=== PATIENT | male | born 1930 | race Caucasian/White ===

== ENCOUNTER 2017-07-08 17:29 | Emergency (ER) | payer MEDICARE, OTHER ==
--- NOTE | 2017-07-08 18:03 | Emergency Department Record ---
History of Present Illness - General Chief Complaint: Altered Mental Status Stated Complaint: change in behavior Time Seen by Provider: 07/08/17 17:52 Source: Family Mode of Arrival: EMS Limitations: No limitations - History of Present Illness Initial Comments: The patient is here due to becoming aggressive with staff at his [facility] [place] [facility]. He has a hx of dementia and became angry at the staff due to some there calling his station wagon type car a van. Due to that the patient became angry and threatening. He had a similar issue about a month ago and went to [facility] ER and was in the ER for about 20 hours until he was transferred to [facility]. He was at [facility] for 2 weeks and was discharged to [facility] where he has resided for 2 weeks. The patient denies any recent illnesses or injuries. The patient's son also states that the patient is now back to normal. MD Complaint: Confusion Onset/Timin -: Days(s) Severity: Moderate Consistency: Constant Context: Other - Dunlap Coma Scale Eye Response: (4) Open spontaneously Motor Response: (6) Obeys commands Verbal Response: (5) Oriented Dunlap Total: 15 - Related Data Home Medications Medication Instructions Recorded Confirmed Last Taken Apixaban [Eliquis] 2.5 mg PO BID 07/08/17 07/08/17 1 Day Ago ~07/07/17 Cholecalciferol (Vitamin D3) 2,000 unit PO DAILY 07/08/17 07/08/17 1 Day Ago [Vitamin D3] ~07/07/17 Fenofibrate Nanocrystallized 145 mg PO DAILY 07/08/17 07/08/17 1 Day Ago [Fenofibrate] ~07/07/17 Furosemide [Lasix] 20 mg PO DAILY 07/08/17 07/08/17 1 Day Ago ~07/07/17 Glipizide 5 mg PO DAILY 07/08/17 07/08/17 1 Day Ago ~07/07/17 Levothyroxine Sodium 75 mcg PO DAILY 07/08/17 07/08/17 1 Day Ago ~07/07/17 Linagliptin [Tradjenta] 5 mg PO DAILY 07/08/17 07/08/17 1 Day Ago ~07/07/17 Losartan Potassium 25 mg PO DAILY 07/08/17 07/08/17 1 Day Ago ~07/07/17 Metoprolol Succinate [Toprol Xl] 50 mg PO BID 07/08/17 07/08/17 1 Day Ago ~07/07/17 Mirabegron [Myrbetriq] 1 tab PO DAILY 07/08/17 07/08/17 1 Day Ago ~07/07/17 Mirtazapine [Remeron] 15 mg PO QHS 07/08/17 07/08/17 1 Day Ago ~07/07/17 Niacin 500 mg PO QHS 07/08/17 07/08/17 1 Day Ago ~07/07/17 Olanzapine 7.5 mg PO QHS 07/08/17 07/08/17 1 Day Ago ~07/07/17 Pantoprazole Sodium [Protonix] 40 mg PO DAILY 07/08/17 07/08/17 1 Day Ago ~07/07/17 Rivastigmine [Exelon] 1 each TD DAILY 07/08/17 07/08/17 1 Day Ago ~07/07/17 Sennosides/Docusate Sodium 2 each PO BID 07/08/17 07/08/17 1 Day Ago [Senokot-S Tablet] ~07/07/17 Sertraline HCl [Zoloft] 50 mg PO QHS 07/08/17 07/08/17 1 Day Ago ~07/07/17 Tamsulosin HCl [Flomax] 0.4 mg PO DAILY 07/08/17 07/08/17 1 Day Ago ~07/07/17 Verapamil HCl [Verapamil ER] 240 mg PO QAM 07/08/17 07/08/17 1 Day Ago ~07/07/17 Allergies Allergy/AdvReac Type Severity Reaction Status Date / Time ceftriaxone [From Rocephin] Allergy RASH Verified 07/08/17 17:46 Travel Screening - Travel/Exposure Within Last 30 Days Have you traveled within the last 30 days?: No - Travel/Exposure Within Last Year Have you traveled outside the [place] in the last year?: No - Additonal Travel Details Have you been exposed to anyone with a communicable illness?: No - Travel Symptoms Symptom Screening: None Review of Systems Constitutional: Denies: Chills, Fever, Malaise Eyes: Denies: Eye discharge ENT: Denies: Congestion Respiratory: Denies: Cough, Dyspnea Cardiovascular: Denies: Arrhythmia, Chest pain Past Medical History - SOCIAL HISTORY Smoking Status: Former smoker Alcohol Use: None Drug Use: None - RESPIRATORY Hx Respiratory Disorders: No - CARDIOVASCULAR Hx CHF: Yes Hx Hypertension: Yes Hx Irregular Heartbeat: Yes (A-fib) Hx Palpitations: Yes Hx Pacemaker/Defib: Yes Comment:: CAD - NEURO Hx Dementia: Yes - GI Hx Reflux: Yes - Hx UTI: Yes - ENDOCRINE Hx Diabetes: Yes (with PVD) Hx Thyroid Disease: Yes (hypo) - MUSCULOSKELETAL Hx Arthritis: Yes (osteo) - PSYCH Hx Anxiety: Yes Hx Depression: Yes - HEMATOLOGY/ONCOLOGY Hx Cancer: Yes (Squamous cell, melanoma scalp and neck, prostate) Family Medical History Any Significant Family History?: Yes Physical Exam - General General Appearance: Alert, Oriented x3, Cooperative, No acute distress - Head Head exam: Atraumatic, Normocephalic, Normal inspection - Eye Eye exam: Normal appearance, PERRL - ENT Throat exam: Normal inspection. negative: Tonsillar erythema, Tonsillar exudate - Neck Neck exam: Normal inspection, Full ROM. negative: Tenderness - Respiratory Respiratory exam: Normal lung sounds bilaterally. negative: Respiratory distress - Cardiovascular Cardiovascular Exam: Normal heart sounds, Irregular rhythm - GI/Abdominal GI/Abdominal exam: Soft, Normal bowel sounds. negative: Tenderness - Extremities Extremities exam: Normal inspection, Full ROM, Normal capillary refill. negative: Tenderness - Neurological Neurological exam: Alert. negative: Altered, Motor sensory deficit, Oriented X3 (The patient is oriented to name and age only which is normal for him. He is confused to date, day, place and year which also is normal for him.) Course Vital Signs 07/08/17 17:32 Temperature 99.0 F Pulse Rate 83 Respiratory 18 Rate Blood Pressure 128/68 Pulse Ox 95 - Reevaluation(s) Reevaluation #1: The patient is doing very well at this time. He has been very calm and cooperative the entire time in the ED. His evaluation does not demonstrate any acute abnormality which could cause this problem. Due to that fact we will send the patient back to his [facility] [place] [facility]. 07/08/17 19:17 Medical Decision Making - Data Complexity MDM Data: Labs Ordered and/or Reviewed, X-Ray Ordered and/or Reviewed - Lab Data Result diagrams: 07/08/17 18:18 07/08/17 18:18 - Radiology Data Radiology results: Report reviewed (Head CT: No acute changes.) Disposition Disposition: Discharge Clinical Impression: Confusion Disposition: Home, Self-Care Condition: (2) Stable Instructions: Altered Mental Status (ED) Additional Instructions: Please continue your regular medicines. Please see your PCP next week for recheck and have the anemia evaluated. Return to the ER for any worsening issues. Forms: Patient Portal Access Time of Disposition: 19:19 Quality - Quality Measures Quality Measures: N/A - Blood Pressure Screening View Details: Yes Does Patient Have Any of the Following: No, Active Dx of HTN Blood Pressure Classification: Pre-Hypertensive BP Reading Systolic Measurement: 128 Diastolic Measurement: 68 Screening for High Blood Pressure: Patient Exclusion, Hx of HTN [G9744]
[2017-07-08 18:38] LABS: BASO % 0.3 % (0-6); EOS % 2.7 % (0-6); GRAN % 66.2 % (47-80); HEMATOCRIT 35.3 % (42.0-52.0); HEMOGLOBIN 10.4 gm/dl (14.0-18.0); LYMPH % 18.5 % (16-45); MEAN CELL VOLUME 94.6 fl (81-97); MEAN CORPUSCULAR HEMOGLOBIN 27.8 pg (27-33); MEAN CORPUSCULAR HGB CONC 29.5 g/dl (32-36); MEAN PLATELET VOLUME 11.3 fl (7.4-10.4); MONO % 12.3 % (0-9); PLATELET COUNT 306 K/uL (130-400); RED BLOOD COUNT 3.73 M/uL (4.40-5.70); RED CELL DISTRIBUTION WIDTH 16.3 % (11.5-14.5); WHITE BLOOD COUNT W/O DIFF 10.9 K/uL (4.2-12.2)
[2017-07-08 18:39] LABS: INR 1.09; PARTIAL THROMBOPLASTIN TIME 28.7 SECONDS (24.5-39.1); PROTHROMBIN TIME (PATIENT) 11.8 SECONDS (9.5-12.1)
[2017-07-08 18:42] LABS: BILIRUBIN,TOTAL 0.5 mg/dL (0.2-1.0); CREATININE 1.9 mg/dL (0.7-1.2)
[2017-07-08 18:47] LABS: ALB/GLOB RATIO 1.3 (1.1-1.8); ALBUMIN 3.9 g/dL (4.0-5.0)
[2017-07-08 18:54] LABS: URINE APPEARANCE CLEAR; URINE BILIRUBIN NEGATIVE (NEGATIVE); URINE BLOOD NEGATIVE (NEGATIVE); URINE COLOR YELLOW; URINE GLUCOSE (UA) NEGATIVE (NEGATIVE); URINE KETONE NEGATIVE (NEGATIVE); URINE LEUKOCYTE ESTERASE TRACE (NEGATIVE); URINE NITRITE NEGATIVE (NEGATIVE); URINE PROTEIN NEGATIVE (NEGATIVE); URINE UROBILINOGEN 0.2 E.U./dL (0.20 - 1.00)
[2017-07-08 19:05] LABS: URINE BACTERIA NONE SEEN
--- NOTE | 2017-07-10 20:06 | CT SCAN REPORT ---
EXAM: CT SCAN HEAD WO CONTRAST HISTORY: CONFUSION, DEMENTIA, AGGRESSIVE. TECHNIQUE: Axial CT scan of the head performed without IV contrast. Preliminary report provided by [facility]. COMPARISON: None. ENCOUNTER: Initial. FINDINGS: No definite acute intracranial hemorrhage identified. No focal mass effect or midline shift apparent. Moderate generalized atrophy with chronic- appearing deep white matter changes seen, nonspecific but likely representing some chronic small vessel deep white matter ischemic disease. Small chronic lacunar infarcts in the region of the lentiform nucleus of the basal ganglia bilaterally. No definite acute infarct or intracranial mass lesion seen. No depressed calvarial fracture is evident. IMPRESSION: 1. NO DEFINITE ACUTE INTRACRANIAL HEMORRHAGE OR FOCAL MASS EFFECT EVIDENT. 2. GENERALIZED ATROPHY WITH CHRONIC-APPEARING DEEP WHITE MATTER CHANGES AND SMALL CHRONIC LACUNAR INFARCTS IN THE BASAL GANGLIA BILATERALLY WITH THAT ON THE LEFT EXTENDING UP INTO THE ADJACENT DEVI RADIATA OF THE LEFT FRONTOPARIETAL REGION. JOB NUMBER: [id number] MTDD
== END 2017-07-08 19:35 | disposition home or self-care (01) ==
LOC: ER 17:29
DX: R41.0 Disorientation, unspecified (principal); I10 Essential (primary) hypertension; I48.91 Unspecified atrial fibrillation; F03.90 Unspecified dementia, unspecified severity, without behavioral disturbance, psychotic disturbance, mood disturbance, and anxiety; I25.10 Atherosclerotic heart disease of native coronary artery without angina pectoris; F17.210 Nicotine dependence, cigarettes, uncomplicated
CPT/HCPCS: 70450; 80053; 81001; 85025; 85610; 85730; 99283; 99284

== ENCOUNTER 2017-07-21 10:00 | Emergency (ER) | payer MEDICARE, OTHER ==
[2017-07-21] MEDS ORDERED: ONDANSETRON HCL IV 4 MG/2 ML VIAL IV ONE (10:33)
[2017-07-21] MEDS ORDERED: SODIUM CHLORIDE 0.9% 500 ML IV ONE (10:33)
--- NOTE | 2017-07-21 10:39 | Emergency Department Record ---
History of Present Illness - General Chief complaint: Male Urogenital Problem Stated complaint: UTI/VOMITING Time Seen by Provider: 07/21/17 10:24 Source: Patient, Family Mode of Arrival: EMS Limitations: No limitations - History of Present Illness Initial comments: The patient is here by EMS due to a one day hx of nausea, vomiting, and loose stools. There was no reported blood in the stool or vomit. The patient also presently denies any pain or discomfort. He supposedly was diagnosed with a UTI yesterday but has not had the medicines filled. The patient does have dementia and is from [facility]. His son is with him now but cannot provide any hx. The patient does have a hx of prostate CA and has had his Appendix removed. MD Complaint: Other Onset/Timin -: Days(s) Radiation: None Consistency: Constant Improves with: None Worsens with: Other Reports: Nausea/vomiting - Related Data Sexually active: No Home Medications Medication Instructions Recorded Confirmed Last Taken Buspirone HCl [Buspar] 5 mg PO BID PRN 07/21/17 07/21/17 Unknown Buspirone HCl [Buspar] 5 mg PO DAILY 07/21/17 07/21/17 Unknown Cholecalciferol (Vitamin D3) 2,000 unit PO DAILY 07/21/17 07/21/17 Unknown [Vitamin D3] Allergies Allergy/AdvReac Type Severity Reaction Status Date / Time ceftriaxone [From Rocephin] Allergy RASH Verified 07/08/17 17:46 Travel Screening - Travel/Exposure Within Last 30 Days Have you traveled within the last 30 days?: No Review of Systems Constitutional: Denies: Chills, Fever Eyes: Denies: Eye discharge ENT: Denies: Congestion Respiratory: Denies: Cough, Dyspnea Past Medical History - SOCIAL HISTORY Smoking Status: Former smoker Alcohol Use: None Drug Use: None - RESPIRATORY Hx Respiratory Disorders: No - CARDIOVASCULAR Hx Cardio Disorders: Yes Hx Abnormal EKG: Yes Hx CHF: Yes Hx Deep Vein Thrombosis: Yes Hx Hypertension: Yes Hx Irregular Heartbeat: Yes (A-fib) Hx Palpitations: Yes Hx Pacemaker/Defib: Yes Comment:: CAD - NEURO Hx Neuro Disorders: Yes Hx Dementia: Yes - GI Hx GI Disorders: Yes Hx Reflux: Yes - Hx Genitourinary Disorders: Yes Hx UTI: Yes - ENDOCRINE Hx Endocrine Disorders: Yes Hx Diabetes: Yes (with PVD) Hx Thyroid Disease: Yes (hypo) - MUSCULOSKELETAL Hx Musculoskeletal Disorders: Yes Hx Arthritis: Yes (osteo) - PSYCH Hx Psych Problems: Yes Hx Anxiety: Yes Hx Depression: Yes - HEMATOLOGY/ONCOLOGY Hx Hematology/Oncology Disorders: Yes Hx Cancer: Yes (Squamous cell, melanoma scalp and neck, prostate) Hx Chemotherapy: No Hx Radiation Therapy: No Family Medical History Any Significant Family History?: No Physical Exam - General General Appearance: Alert, Cooperative, No acute distress - Head Head exam: Atraumatic, Normocephalic, Normal inspection - Eye Eye exam: Normal appearance, PERRL - Neck Neck exam: Normal inspection, Full ROM. negative: Tenderness - Respiratory Respiratory exam: Normal lung sounds bilaterally. negative: Respiratory distress - Cardiovascular Cardiovascular Exam: Regular rate, Normal rhythm, Normal heart sounds - GI/Abdominal GI/Abdominal exam: Soft, Normal bowel sounds. negative: Tenderness - Extremities Extremities exam: Normal inspection, Full ROM, Normal capillary refill. negative: Tenderness - Neurological Neurological exam: Alert. negative: Motor sensory deficit, Oriented X3 (The patient is oriented to name only which is his normal mental status.) Course Vital Signs 07/21/17 10:11 Temperature 98.7 F Pulse Rate [ 102 H Pulse Ox Probe] Respiratory 18 Rate Blood Pressure 167/69 [Left Arm] Pulse Ox 97 - Reevaluation(s) Reevaluation #1: The patient is doing a lot better at this time. He denies any nausea, vomiting, or AP. It appears he has quite a tight phimosis to the foreskin of his penis so I strongly doubt any UTI and believe the urine obtained at the home is contaminated due to the fact there is no way to get a clean specimen. Our urine here only has a few WBC's and Bact but also Epithelial cells. At this time the patient seems to be doing a lot better and we will give him something to drink. 07/21/17 12:23 Reevaluation #2: The patient is doing very well at this time. He is drinking fluids normally and did stand up to urinate with no difficulty. He denies any pain or discomfort and has no nausea or vomiting or any further diarrhea. 07/21/17 12:46 Medical Decision Making - Lab Data Result diagrams: 07/21/17 10:50 07/21/17 10:50 Disposition Disposition: Discharge Clinical Impression: Vomiting and diarrhea Disposition: Home, Self-Care Condition: (2) Stable Instructions: Gastroenteritis (ED) Additional Instructions: Please continue the patient's regular medicines and ONLY give him the Macrobid. DO NOT give the patient Cipro and Bactrim due to the urine almost FOR SURE being contaminated. Please have the patient see his PCP next week and return to the ER for any problems or recurrent symptoms. Forms: Patient Portal Access Time of Disposition: 13:59 Quality - Quality Measures Quality Measures: N/A - Blood Pressure Screening View Details: Yes Does Patient Have Any of the Following: No, Active Dx of HTN Blood Pressure Classification: Hypertensive Reading Systolic Measurement: 144 Diastolic Measurement: 96 Screening for High Blood Pressure: Patient Exclusion, Hx of HTN [G9744]
[2017-07-21 10:55] LABS: HEMATOCRIT 38.9 % (42.0-52.0); HEMOGLOBIN 11.5 gm/dl (14.0-18.0); MEAN CELL VOLUME 95.1 fl (81-97); MEAN CORPUSCULAR HEMOGLOBIN 28.1 pg (27-33); MEAN CORPUSCULAR HGB CONC 29.6 g/dl (32-36); MEAN PLATELET VOLUME 10.4 fl (7.4-10.4); PLATELET COUNT 261 K/uL (130-400); RED BLOOD COUNT 4.09 M/uL (4.40-5.70); RED CELL DISTRIBUTION WIDTH 15.3 % (11.5-14.5); WHITE BLOOD COUNT W/O DIFF 10.8 K/uL (4.2-12.2)
[2017-07-21 11:03] LABS: PLATELET ESTIMATE NORMAL (NORMAL)
[2017-07-21 11:07] LABS: INR 1.2
[2017-07-21 11:11] LABS: BILIRUBIN,TOTAL 0.7 mg/dL (0.2-1.0); CREATININE 2.1 mg/dL (0.7-1.2); TOTAL PROTEIN 7.5 g/dL (6.6-8.7)
[2017-07-21 11:14] LABS: URINE APPEARANCE CLEAR; URINE BILIRUBIN NEGATIVE (NEGATIVE); URINE BLOOD NEGATIVE (NEGATIVE); URINE COLOR YELLOW; URINE KETONE NEGATIVE (NEGATIVE); URINE LEUKOCYTE ESTERASE TRACE (NEGATIVE); URINE NITRITE NEGATIVE (NEGATIVE); URINE PROTEIN TRACE (NEGATIVE); URINE UROBILINOGEN 0.2 E.U./dL (0.20 - 1.00)
[2017-07-21 11:16] LABS: ALBUMIN 4.2 g/dL (4.0-5.0); BILIRUBIN,DIRECT 0.3 mg/dL (0-0.3)
[2017-07-21 11:23] LABS: URINE BACTERIA 1+; URINE RBC NONE SEEN (NONE SEEN)
[2017-07-21] MEDS ORDERED: LIDOCAINE UROJECT 10 ML APPL MM ONE (12:08)
[2017-07-21] MEDS ORDERED: 0.9 % SODIUM CHLORIDE 1,000 ML BAG IV ONE (12:21)
--- NOTE | 2017-07-22 07:54 | CT SCAN REPORT ---
EXAM: EMERGENCY CT OF THE ABDOMEN AND PELVIS WITHOUT CONTRAST HISTORY: NAUSEA, VOMITING AND DIARRHEA FOR ONE DAY. PRIOR APPENDECTOMY AND PRIOR PROSTATE CANCER. TECHNIQUE: Axial CT scan of the abdomen and pelvis was performed without oral or IV contrast. Comparison: None. FINDINGS: Cardiomegaly is present. Electrode lead extending into the right side of the heart. There is a small right pleural effusion. There is some atelectasis or infiltrate in the right base posteriorly as well. Minor linear fibrosis or discoid atelectasis left base. No calcified gallstones are seen within the gallbladder. There is probably a single tiny nonobstructing calculus in the right kidney. No other definite intrarenal calculi seen with some central renal calcification bilaterally probably renal arterial in nature. There is some focal scarring in both kidneys which may be sequela of chronic atrophic pyelonephritis. No hydronephrosis or hydroureter is seen on either side. No ureteral calculus seen on either side and no bladder calculus evident. Evaluation of the bowel and viscera is very limited without oral or IV contrast. Given this limitation, no definite hepatic, splenic, adrenal, pancreatic, or left renal mass identified. There is probably a small exophytic low attenuation mass arising from the lower pole of the right kidney best seen on the coronal and sagittal images measuring about 1.7 cm in size. This was incompletely evaluated without IV contrast although has a noncontrast CT density of 19. This probably represents an incidental cyst, but if not previously documented, follow-up renal ultrasound may be able to confirm. There is some coronary artery calcification present. The upper abdominal aorta is mildly dilated measuring about 4 cm in AP x 3.6 cm in transverse diameter. At the level of the celiac access the aorta has tapered down to a diameter of about 2.9 x 2.6 cm. In the infrarenal location it again expands to a diameter of about 3.8 cm in AP x 3.9 cm in transverse diameter. It then tapers down to a diameter of 2.5 x 2.4 cm, but then expands to a diameter of 3.3 x 3 cm down to the bifurcation. 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 The external iliacs and common femorals appear of normal caliber. There are numerous metallic densities in the region of the prostate bed presumably representing radiation therapy seeds given the history of prior prostate carcinoma. There is moderate diverticulosis in the upper sigmoid and lower descending colon , but no definite diverticulitis. The appendix is not identified consistent with the surgical history. No free intraperitoneal air or free intraperitoneal fluid identified. Prominent spurring in the spine and facet joint arthropathy in the lumbar region, with multilevel degenerative disk disease as well. There is a component of central stenosis at the L2-L3 interspace and probably also at the L4-L5 interspace. IMPRESSION: 1. THERE IS PROBABLY A SINGLE TINY NONOBSTRUCTING CALCULUS IN THE RIGHT KIDNEY. NO HYDRONEPHROSIS OR URETERAL CALCULUS SEEN ON EITHER SIDE. 2. 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 THERE IS LIKELY A SMALL EXOPHYTIC LOWER POLE RIGHT RENAL CYST WELL. 3. 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 4. CARDIOMEGALY WITH CORONARY ARTERY CALCIFICATION. SMALL RIGHT PLEURAL EFFUSION. 5. MULTILEVEL DEGENERATIVE CHANGE IN THE SPINE WITH MULTILEVEL LUMBAR SPINAL STENOSIS. 6. APPARENT POST RADIATION SEEDS IN THE PROSTATE BED. 7. POSTOP APPENDECTOMY. JOB NUMBER: [id number] [facility]
== END 2017-07-21 14:32 | disposition home or self-care (01) ==
LOC: ER 10:00
DX: R11.2 Nausea with vomiting, unspecified (principal); R19.7 Diarrhea, unspecified; I10 Essential (primary) hypertension; Z85.46 Personal history of malignant neoplasm of prostate; Z87.891 Personal history of nicotine dependence
CPT/HCPCS: 99284 ×2; 96374; 96361; 83690; 85730; 85610; 80076; 80048; 81001; 85027; 74176; J2405; J7030